=== PATIENT | female | born 1955 | race Caucasian/White ===

== ENCOUNTER 2016-11-27 03:59 | Inpatient (IN) ==
[2016-11-22 13:19] LABS: MANUAL DIFF NEEDED? NO; URINE MICRO REVIEW NEEDED? NO; URINE SOURCE CLEAN CATCH
[2016-11-22 13:30] LABS: BASO% 0.5 % (0.0-0.8); EOS# 0.16 X1000 (0.0-0.7); EOS% 2.6 % (0.0-10.0); HEMOGLOBIN 12.9 g/dL (12.0-16.0); LYMPH# 1.84 X1000 (1.2-3.4); LYMPH% 29.5 % (20.5-51.1); MCH 28.9 PG (27-31); MCHC 32.3 g/dL (33-37); MCV 89.7 FL (81-99); MONO# 0.54 X1000 (0.11-0.59); MONO% 8.7 % (1.7-9.3); MPV 8.5 FL (7.4-10.4); NEUT% 58.7 % (42.2-75.2); PLT 260 X1000 (130-400); RBC 4.46 XMIL (4.2-5.4)
[2016-11-22 13:31] LABS: BILIRUBIN URINE NEGATIVE (NEGATIVE); BLOOD URINE NEGATIVE (NEGATIVE); COLOR YELLOW; GLUCOSE URINE NEGATIVE (NEGATIVE); LEUKOCYTES URINE NEGATIVE (NEGATIVE); NITRITE URINE NEGATIVE (NEGATIVE); PH URINE 6.5; PROTEIN URINE NEGATIVE (NEGATIVE); SP GRAVITY URINE 1.012; TURBIDITY URINE CLEAR (CLEAR); UROBILINOGEN URINE NORMAL (NORMAL)
[2016-11-22 13:32] LABS: UR EPITHELIAL CELLS <10 /HPF (<10); URINE BACTERIA NEGATIVE /HPF; URINE RBC <10 /HPF (<10); URINE WBC <10 /HPF (<10)
[2016-11-22 13:45] LABS: INR 0.96; PROTIME 10.2 Seconds (9.2-11.7); PTT 28.5 Seconds (22.0-36.0)
--- NOTE | 2016-11-22 13:58 | EKG Report ---
Test Performed on : 11/22/2016 12:59:22 PM Test Reason : PAT Blood Pressure : / mmHG Vent. Rate : 093 BPM Atrial Rate : 093 BPM P-R Int : 142 ms QRS Dur : 078 ms QT Int : 336 ms P-R-T Axes : 074 052 049 degrees QTc Int : 417 ms Normal sinus rhythm. Normal ECG No previous ECGs available Confirmed by Dany PAINTING, Cecil Valente ([id number]) on 11/24/2016 5:20:09 PM
[2016-11-22 16:19] LABS: AGAP 13; BUN 6 mg/dL (8-22); CALCIUM 9.4 mg/dL (8.8-10.2); CHLORIDE 97 mmol/L (98-107); COSMO 271; POTASSIUM 4.8 mmol/L (3.5-5.1); SODIUM 138 mmol/L (136-145); TCO2 28 mmol/L (25-35)
[2016-11-27] MEDS ORDERED: REGLAN ONE (09:49)
[2016-11-27] MEDS ORDERED: PEPCID ONE (09:49)
[2016-11-27] MEDS ORDERED: COLACE ONE (09:49)
[2016-11-27] MEDS ORDERED: LYRICA ONE (09:50)
[2016-11-27] MEDS ORDERED: KEFZOL 1 GM/D5W 50 ML ONE (09:50)
[2016-11-27] MEDS ORDERED: LR 1,000 ML ONE ×3 (09:50→13:40)
[2016-11-27] MEDS ORDERED: CELEBREX ONE (09:50)
[2016-11-27] MEDS ORDERED: VALIUM ONE (09:59)
[2016-11-27] MEDS ORDERED: TORADOL ONE (10:37)
[2016-11-27] MEDS ORDERED: NEOSPORIN G.U. IRRIGANT ONE (10:38)
[2016-11-27] MEDS ORDERED: MARCAINE 0.25% PF/EPI 1:200,000 ONE (10:38)
[2016-11-27] MEDS ORDERED: CYKLOKAPRON 1,000 MG/NS 100 ML ONE (10:38)
[2016-11-27] MEDS ORDERED: DURAMORPH ONE ×2 (10:38→11:34)
[2016-11-27] MEDS ORDERED: SODIUM CHLORIDE 0.9% ONE (10:38)
[2016-11-27] MEDS ORDERED: EXPAREL 1.3% ONE (10:38)
[2016-11-27 11:48] LABS: URINE MICRO REVIEW NEEDED? NO; URINE SOURCE CATH
[2016-11-27 12:01] LABS: BILIRUBIN URINE NEGATIVE (NEGATIVE); BLOOD URINE NEGATIVE (NEGATIVE); COLOR YELLOW; GLUCOSE URINE NEGATIVE (NEGATIVE); LEUKOCYTES URINE NEGATIVE (NEGATIVE); NITRITE URINE NEGATIVE (NEGATIVE); PH URINE 5.5; PROTEIN URINE NEGATIVE (NEGATIVE); SP GRAVITY URINE 1.025; TURBIDITY URINE CLEAR (CLEAR); UR EPITHELIAL CELLS <10 /HPF (<10); URINE BACTERIA NEGATIVE /HPF; URINE RBC <10 /HPF (<10); URINE WBC <10 /HPF (<10); UROBILINOGEN URINE NORMAL (NORMAL)
[2016-11-27] MEDS ORDERED: ZOFRAN ONE (13:39)
[2016-11-27] MEDS ORDERED: NEO-SYNEPHRINE ONE (13:39)
[2016-11-27] MEDS ORDERED: XYLOCAINE-MPF 2% ONE (13:40)
[2016-11-27] MEDS ORDERED: PIGGYBACK SET 7393 ONE (13:40)
[2016-11-27] MEDS ORDERED: DECADRON ONE (13:40)
[2016-11-27] MEDS ORDERED: EPHEDRINE ONE (13:40)
[2016-11-27] MEDS ORDERED: OFIRMEV 1000 MG/ISOTONIC SOLN 100 ML ONE (13:40)
[2016-11-27] MEDS ORDERED: NS 250 ML ONE (13:40)
[2016-11-27] MEDS ORDERED: VERSED ONE (13:41)
[2016-11-27] MEDS ORDERED: DIPRIVAN 1% ONE (13:41)
[2016-11-27] MEDS ORDERED: NS 1,000 ML ONE (13:43)
[2016-11-27] MEDS ORDERED: FENTANYL ONE (14:05)
--- NOTE | 2016-11-27 14:07 | OPERATIVE NOTE ---
PROCEDURE DATE: 11/27/2016 PREOPERATIVE DIAGNOSIS: Left hip degenerative joint disease. POSTOPERATIVE DIAGNOSIS: Left hip degenerative joint disease. PROCEDURES PERFORMED: 1. Left anterior total hip arthroplasty, [facility] surgical size 10 femoral stem, high offset, with a +0, 36 mm Biolox Delta ceramic femoral head, a 52 mm hemispherical shell, a 36 mm inside diameter acetabular shell, and two 6.5 cancellous screws of 35 mm and 15 mm in length. SURGEON: Eric Hutchins MD SUPERVISOR BRINE: JACKI Lunsford ANESTHESIA: General. COMPLICATIONS: None. BLOOD LOSS: Minimal. DRAINS: Hemovac x1. DESCRIPTION OF PROCEDURE: The patient was brought to the operative suite and placed in supine position. After successful administration of general anesthesia, the patient was placed on the OSI table in the usual position for the left hip. The left hip was then prepped and draped in the usual sterile fashion. A longitudinal incision was made beginning 2 cm distal and 2 cm lateral to the anterior superior iliac spine, extending distally and slightly laterally 8 cm. It was dissected sharply through the skin and subcutaneous tissue down to the tensor fascia. The tensor fascia was incised and dissected bluntly down to the deep tensor fascia. The deep tensor fascia was incised and the circumflex vessels were electrocauterized, exposing the anterior capsule. A T- capsulotomy was performed, exposing the femoral neck. There were large osteophytes on the anterior neck that were rongeured away and then an anterior neck cut was made with an oscillating saw. The femoral head was removed with a power corkscrew. There was a large osteophyte on the anterior lip of the acetabulum that was removed with a rongeur as well. The labrum was resected. The acetabulum was serially reamed to a 52 to accept a 52 cup. The 52 hemispherical shell was driven into place in the proper amount of inclination and anteversion under fluoroscopy and then two 6.5 cancellous screws were placed superiorly of 35 mm superiorly and 15 mm posterior superiorly. A 36 mm inside diameter acetabular liner was locked onto the shell. Attention was then directed to the femur. It was externally rotated, extended, adducted, and elevated out of the wound with the hook on the OSI bed. The lateral neck was rongeured. The canal was serially broached to a size 10. A size 10 high offset +0, 36 head was trialed and found be excellent leg length, offset, and fit and fill of the stem. The trial was removed. The definitive stem was then driven into the femur and seated. The 36 mm, 0 neck length Biolox Delta ceramic femoral head was locked onto the Stewart taper and then the hip was reduced. It was again found to be in excellent position. The anterior capsule was repaired with #2 FiberWire. The hip was copiously infiltrated with Exparel, including the posterior capsule, anterior capsule, anterior musculature, and subcutaneous tissue. A drain was placed deep to the tensor fascia exiting laterally and buried around the stem neck and then the tensor fascia was closed with running 0 Vicryl. The skin edges were approximated with 2-0 Vicryl and the skin was closed with skin vanessa. A sterile dressing was applied. The patient tolerated the procedure well without complication.
[2016-11-27] MEDS ORDERED: MILK OF MAGNESIA PO PRN (15:30)
[2016-11-27] MEDS ORDERED: OXY IR PO PRN (15:30)
[2016-11-27] MEDS ORDERED: MORPHINE IV PRN (15:30)
[2016-11-27] MEDS ORDERED: AMBIEN PO PRN (15:30)
[2016-11-27] MEDS ORDERED: ZOFRAN IV PRN (15:30)
--- NOTE | 2016-11-27 16:04 | HISTORY AND PHYSICAL ---
CHIEF COMPLAINT: Left hip pain. HISTORY OF PRESENT ILLNESS: Ms. Aponte is a 61-year-old female with a history of left hip pain for about 2 years. She has not responded to conservative therapy. Radiographic imaging of the left hip reveals images consistent with aseptic necrosis of the left femur. She is being admitted to the hospital today for a left total hip arthroplasty. PAST MEDICAL HISTORY: COPD, deep vein thrombosis. She is a smoker. Osteoarthritis, chronic pain, depression, anxiety. PAST SURGICAL HISTORY: Hysterectomy, back surgery, right breast lump surgery. FAMILY HISTORY: Noncontributory. SOCIAL HISTORY: She is single. She smokes 2 to 3 cigarettes a day now, which she has cut back dramatically, and denies alcohol. HOME MEDICATIONS: Her home medications are risperidone 2 mg p.o. every night at bedtime, Valium 10 mg p.o. b.i.d., albuterol inhaled b.i.d., oxymorphone hydrochloride 10 mg p.o. b.i.d., oxycodone hydrochloride 30 mg p.o. t.i.d., Adderall catarrhal 30 mg p.o. b.i.d. ALLERGIES: To Toradol. PRIMARY CARE PROVIDER: Dr. Celeste REVIEW OF SYSTEMS: HEENT: The patient has dental caries, poor dental health. Denies any other head, ears, eyes, nose, or throat problems. Cardiac: The patient denies any cardiac history. Denies any chest pain. Pulmonary: The patient reports having COPD. Gastrointestinal: The patient denies any chronic GI problems. Denies any nausea, vomiting, diarrhea. Genitourinary: The patient denies any problems with bladder or urinary tract. Neurological: The patient denies any numbness or tingling or any neurological deficits. Musculoskeletal: The patient reports left hip pain. PHYSICAL EXAMINATION: GENERAL: The patient is awake, sitting up in bed. She is articulate and able to answer questions appropriately. HEENT: Head is normocephalic, atraumatic. Pupils equal, round, reactive to light. Nares patent. Throat without exudate. CARDIAC: S1 and S2 auscultated. No murmur, rub, or gallop noted. LUNGS: She had bilateral wheezing in the bases, otherwise clear. GASTROINTESTINAL: The abdomen is soft, nontender, nondistended. Bowel sounds present all quadrants. GENITOURINARY: Not examined. NEUROLOGICAL: The patient has good sensation to dull touch in all extremities. Cranial nerves 2 through 12 grossly intact. MUSCULOSKELETAL: Left hip pain. On physical examination of the left hip, the patient has pain with palpation of the left hip, as well as passive range of motion. IMPRESSION: Aseptic necrosis of the left femur. PLAN: Left total hip arthroplasty. The risks, benefits, and alternatives of the surgery were discussed with the patient including the risks of anesthesia, bleeding, damage to blood vessels, nerves, tendons, ligaments, and other imponderables were discussed, and the patient agrees to proceed with the surgery at this time. Dictated by JACKI Lunsford for Eric Hutchins MD
[2016-11-27] MEDS: ULTRAM PO SCH ×2 (17:25→21:16)
[2016-11-27] MEDS: NS 1,000 ML IV SCH (17:26)
[2016-11-27] MEDS: PERIDEX MT SCH ×2 (17:26→21:16)
[2016-11-27] MEDS ORDERED: CYKLOKAPRON 1,000 MG in NS 100 ML IV ONE (17:35)
[2016-11-27] MEDS: VENTOLIN HFA INH SCH (19:18)
[2016-11-27] MEDS: KEFZOL 2 GM/D5W 50 ML IV SCH (21:16)
[2016-11-27] MEDS: TYLENOL PO SCH (21:17)
[2016-11-27] MEDS: CELEBREX PO SCH (21:17)
[2016-11-27] MEDS: LYRICA PO SCH (21:17)
[2016-11-27] MEDS: COLACE PO SCH (21:17)
[2016-11-27] MEDS: RISPERDAL PO SCH (21:18)
[2016-11-27] MEDS: VALIUM PO SCH (21:21)
[2016-11-27] MEDS: OXY IR PO SCH (22:51)
[2016-11-28] MEDS: KEFZOL 2 GM/D5W 50 ML IV SCH (04:27)
[2016-11-28] MEDS: TYLENOL PO SCH ×5 (04:28→21:25)
[2016-11-28] MEDS: XARELTO PO SCH ×2 (04:28→07:42)
[2016-11-28] MEDS: ULTRAM PO SCH ×5 (04:28→21:24)
[2016-11-28] MEDS: NS 1,000 ML IV SCH (04:29)
[2016-11-28 05:55] LABS: HEMATOCRIT 30.6 % (37.0-47.0); HEMOGLOBIN 9.9 g/dL (12.0-16.0)
[2016-11-28 06:04] LABS: AGAP 9; BUN 7 mg/dL (8-22); CALCIUM 8.2 mg/dL (8.8-10.2); CHLORIDE 100 mmol/L (98-107); COSMO 270; POTASSIUM 5.2 mmol/L (3.5-5.1); SODIUM 136 mmol/L (136-145); TCO2 27 mmol/L (25-35)
[2016-11-28] MEDS: VALIUM PO SCH ×2 (08:46→21:24)
[2016-11-28] MEDS: CELEBREX PO SCH ×2 (08:46→21:24)
[2016-11-28] MEDS: ADDERALL PO SCH ×2 (08:46→13:37)
[2016-11-28] MEDS: COLACE PO SCH ×2 (08:47→21:24)
[2016-11-28] MEDS: PEPCID PO SCH (08:47)
[2016-11-28] MEDS: OXY IR PO SCH ×5 (08:48→21:25)
[2016-11-28] MEDS: LYRICA PO SCH ×2 (08:57→21:25)
[2016-11-28] MEDS ORDERED: DECADRON IV ONE (09:00)
--- NOTE | 2016-11-28 09:18 | PROGRESS NOTE ---
DATE: 11/28/2016 SUBJECTIVE: Brandy Aponte is a 61-year-old female, who is postoperative day 1 from a left anterior total hip arthroplasty. She has no complaints. OBJECTIVE: General: She is a well-developed, well-nourished female. She is alert, oriented, and cooperative with the exam. Vital Signs: Her vital signs are stable. She is afebrile. Her hematocrit is 30.6%. Extremities: She has had minimal output from her drain. Her dressing is clean, dry, and intact. Her leg is neurovascularly intact without sign of infection or deep venous thrombosis. ASSESSMENT: Stable postoperative day 1 visit from a left anterior total hip arthroplasty. PLAN: We will continue to work on physical therapy with her today. We will discontinue her drain, remove her Cruz, discontinue her IV fluids, Hep-Lock her IV, and work on physical therapy today. She wishes to go home later in the week.
[2016-11-28] MEDS: PERIDEX MT SCH ×2 (10:34→21:23)
[2016-11-28] MEDS: VENTOLIN HFA INH SCH ×2 (17:06→19:11)
[2016-11-28] MEDS: RISPERDAL PO SCH (21:24)
[2016-11-29] MEDS: XARELTO PO SCH ×2 (04:12→08:48)
[2016-11-29] MEDS: ULTRAM PO SCH ×4 (04:12→22:36)
[2016-11-29] MEDS: TYLENOL PO SCH ×5 (04:12→22:35)
[2016-11-29 07:17] LABS: HEMATOCRIT 20.4 % (37.0-47.0)
[2016-11-29 07:18] LABS: HEMOGLOBIN 6.4 g/dL (12.0-16.0)
[2016-11-29] MEDS: VENTOLIN HFA INH SCH ×2 (07:56→19:10)
[2016-11-29] MEDS: LYRICA PO SCH ×2 (08:46→22:35)
[2016-11-29] MEDS: PERIDEX MT SCH ×2 (08:47→22:33)
[2016-11-29] MEDS: PEPCID PO SCH (08:47)
[2016-11-29] MEDS: CELEBREX PO SCH ×2 (08:47→22:35)
[2016-11-29] MEDS: COLACE PO SCH ×2 (08:47→22:35)
[2016-11-29] MEDS: OXY IR PO SCH ×3 (08:50→22:34)
[2016-11-29] MEDS: ADDERALL PO SCH ×2 (08:50→14:37)
[2016-11-29] MEDS: VALIUM PO SCH ×2 (10:16→22:36)
[2016-11-29] MEDS ORDERED: NS 500 ML IV SCH (14:45)
[2016-11-29] MEDS ORDERED: NS 500 ML IV ONE (16:07)
--- NOTE | 2016-11-29 16:40 | PROGRESS NOTE ---
DATE: 11/29/2016 SUBJECTIVE: Brandy Aponte is a 61-year-old female who is postoperative day 2 from a left total hip arthroplasty. She has no significant complaints. OBJECTIVE: She is well-developed, well-nourished female. She is alert cooperative with exam. She is having hypotension and her hematocrit is 20. ASSESSMENT: Acute blood loss anemia after left total knee arthroplasty. PLAN: Transfuse her 2 units. We are also going to give her 500 mL bolus of normal saline. Hopefully, she will be better tomorrow and we can consider discharging her home. She is walking well with physical therapy.
[2016-11-29] MEDS: PATIENT'S OWN MED PO SCH ×2 (18:39→22:36)
[2016-11-29] MEDS: RISPERDAL PO SCH (22:33)
[2016-11-30] MEDS: XARELTO PO SCH ×2 (04:46→08:27)
[2016-11-30] MEDS: TYLENOL PO SCH ×2 (04:46→10:05)
[2016-11-30] MEDS: ULTRAM PO SCH ×2 (04:47→10:05)
[2016-11-30 06:35] LABS: HEMOGLOBIN 8.5 g/dL (12.0-16.0)
[2016-11-30] MEDS: VENTOLIN HFA INH SCH (08:16)
[2016-11-30] MEDS: LYRICA PO SCH (10:05)
[2016-11-30] MEDS: OXY IR PO SCH (10:05)
[2016-11-30] MEDS: COLACE PO SCH (10:05)
[2016-11-30] MEDS: CELEBREX PO SCH (10:05)
[2016-11-30] MEDS: VALIUM PO SCH (10:06)
[2016-11-30] MEDS: PEPCID PO SCH (10:06)
[2016-11-30] MEDS: ADDERALL PO SCH (10:06)
[2016-11-30] MEDS: PERIDEX MT SCH (10:06)
[2016-11-30] MEDS: PATIENT'S OWN MED PO SCH (10:11)
[2016-11-30 12:15] VITALS: BP 90/50
--- NOTE | 2016-11-30 21:00 | DISCHARGE SUMMARY ---
ADMISSION DATE: 11/27/2016 DISCHARGE DATE: 11/30/2016 DISCHARGE DIAGNOSIS: Left hip degenerative joint disease status post left anterior total hip arthroplasty and acute blood loss anemia, treated with transfusion. DISCHARGE MEDICATIONS: See discharge medication list. DISPOSITION: Patient discharged home with home health and physical therapy. Instructed to return for any signs of infection or deep venous thrombosis. Instructed to return to see Dr. Hutchins next . HOSPITAL COURSE: On the day of admission, the patient underwent a left anterior total hip arthroplasty. Her postoperative course was unremarkable. At discharge, except for acute blood loss anemia treated with transfusion, she is afebrile, tolerating a regular diet, ambulating with Physical Therapy. Her wound is clean, dry, intact without sign of infection. She is discharged home in stable condition with instructions to follow up as described above.
== END 2016-11-30 12:49 | disposition home health service (06) | DRG 470 ==
LOC: SURHOLD 03:59 → 4N 12:32
PROVIDERS: ADMIT Orthopaedic Surgery; ATTEND Orthopaedic Surgery
PROC: 0SRB04A Replacement of Left Hip Joint with Ceramic on Polyethylene Synthetic Substitute, Uncemented, Open Approach (ICD-10-PCS; principal; 2016-11-27 11:05)
PROC: 30233N1 Transfusion of Nonautologous Red Blood Cells into Peripheral Vein, Percutaneous Approach (ICD-10-PCS; 2016-11-29)
DX: M16.12 Unilateral primary osteoarthritis, left hip (principal); M87.9 Osteonecrosis, unspecified; D62 Acute posthemorrhagic anemia; J44.9 Chronic obstructive pulmonary disease, unspecified; Z86.718 Personal history of other venous thrombosis and embolism; F17.210 Nicotine dependence, cigarettes, uncomplicated; G89.29 Other chronic pain; K02.9 Dental caries, unspecified; F32.9 Major depressive disorder, single episode, unspecified; F41.9 Anxiety disorder, unspecified; Z79.899 Other long term (current) drug therapy; Z79.891 Long term (current) use of opiate analgesic
CPT/HCPCS: 76000; 80048; 81001; 85014; 85018; 85025; 85610; 85730; 86850; 86900; 86901; 86920; 88304; 88311; 93005; 93010; 94760; 94761; 94799; C9290; J0131; J0690; J1100; J1885; J2250; J2270; J2274; J2370; J2405; J3010; J7030; J7040; J7050; J7120; P9016; 94640-76; 97110-GP; 97116-GP; 97530-GP; S0020